=== PATIENT | male | born 1965 | race Caucasian/White ===

== ENCOUNTER → 2017-02-27 | Outpatient (CLI) | payer BC ==
--- NOTE | 2017-02-28 08:33 | XR ---
EXAMINATION TYPE: XR chest 2V DATE OF EXAM: 02/27/2017 COMPARISON: 07/09/2008 TECHNIQUE: PA and lateral views submitted. HISTORY: Cough and congestion FINDINGS: The lungs are clear and there is no pneumothorax, pleural effusion, or focal pneumonia. Tiny calcif ied granuloma right upper lobe. Vague nodularity in the lateral view likely within the medial aspect of the right lower lobe. IMPRESSION: 1. No acute process. There is vague nodularity in the right lower lobe noted on the lateral view. Rec ommend CT scan of the chest.
== END | disposition home or self-care (01) ==
LOC: RADXRMAIN 16:34
PROVIDERS: ATTEND Physician Assistant
DX: J98.4 Other disorders of lung (principal); J20.9 Acute bronchitis, unspecified
CPT/HCPCS: 71046

== ENCOUNTER → 2017-03-24 | Outpatient (CLI) | payer BC ==
--- NOTE | 2017-03-24 09:43 | XR ---
EXAMINATION TYPE: XR chest 2V DATE OF EXAM: 03/24/2017 COMPARISON: 02/27/2017 HISTORY: Persistent wheezing TECHNIQUE: Frontal and lateral views of the chest are obtained. FINDINGS: There is an approximately 1.1 cm pulmonary nodule at the right cardiophrenic angle within the right lung base which requires further evaluation with CT. Remainder the lungs are clear without evidence of focal consolidation, pleural effusion or pneumothorax. Osseous structures are intact. Car rosemary mediastinal silhouette is within normal limits. IMPRESSION: 1.1 cm pulmonary nodule within the right lung base at the cardiophrenic angle which requ ires further evaluation with CT. Otherwise no acute cardiopulmonary process.
== END | disposition home or self-care (01) ==
LOC: RADXRMAIN 08:33
PROVIDERS: ATTEND Family Medicine
DX: R91.1 Solitary pulmonary nodule (principal)
CPT/HCPCS: 71046

== ENCOUNTER → 2018-01-19 | Outpatient (CLI) | payer BC ==
--- NOTE | 2018-01-19 15:27 | CT ---
EXAMINATION TYPE: CT chest w con DATE OF EXAM: 01/19/2018 COMPARISON: Chest x-ray March 24, 2017 HISTORY: Solitary lung nodule. CT DLP: 562.8 mGycm. Automated Exposure Control for Dose Reduction was Utilized. TECHNIQUE: CT scan of the thorax is performed following with IV Contrast, patient injected with 100m l mL of Isovue 300. FINDINGS: LUNGS: There is stable calcified 1.2 cm nodule or granuloma in the right lower lobe posterior mediall y axial image 45. No suspicious greater than 4 mm noncalcified nodule or mass is present. No pleural effusion or pneumothorax is seen bilaterally. Tracheobronchial tree is patent. MEDIASTINUM: There are no greater than 1 cm noncalcified hilar or mediastinal lymph nodes. There are prominent but calcified right hilar lymph nodes No cardiomegaly or pericardial effusion is seen. OTHER: Liver is diffusely low dense consistent with fatty infiltration. There is partial visualizatio n of haziness and prominent but subcentimeter lymph nodes in the mid abdominal mesentery. IMPRESSION: 1. Evidence of old granulomatous disease. No suspicious noncalcified nodules. 2. Partial visualization of romy mesentery, differential includes mesenteric panniculitis, the etiol ogies are not excluded. Clinical correlation advised to determine need for further workup.
== END ==
LOC: RADCTMAIN 14:46
PROVIDERS: ATTEND Family Medicine
DX: D71 Functional disorders of polymorphonuclear neutrophils (principal)
CPT/HCPCS: 71260; Q9967

== ENCOUNTER 2021-11-02 09:03 | Day surgery (SDC) | payer BC ==
[2021-10-29 11:12] VITALS: BMI 34.0
[~2021-11-02 09:03] MED LIST: LACTATED RINGERS 1,000 ML IV SCH; LIDOCAINE 1% (10MG/ML) FOR IV START INTRADERMA PRN
[2021-11-02 09:53] VITALS: RESP 16; TEMP 97.9
[2021-11-02] MEDS ORDERED: PROPOFOL 10 MG/ML 20 ML VIAL IV ONE (10:20)
[2021-11-02] MEDS ORDERED: LIDOCAINE 2% INJ 20 MG/ML (2 ML VIAL) ONE (10:20)
--- NOTE | 2021-11-02 10:38 | P.PCN ---
Date of Procedure: 11/02/21 Procedure(s) Performed: BRIEF HISTORY: Patient is a 56-year-old pleasant white male scheduled for an elective colonoscopy as a part of screening for colon cancer and family history of colon cancer. His dad was diagnosed with colon cancer at age 75. PROCEDURE PERFORMED: Colonoscopy. PREOPERATIVE DIAGNOSIS: Screening for colon cancer and family history of colon cancer. IV sedation per Anesthesia. PROCEDURE: After informed consent was obtained, the patient, was brought into the endoscopy unit. IV sedation was administered by Anesthesia under continuous monitoring. Digital rectal examination was normal. Initially the Olympus CF-160 flexible video colonoscope was then inserted in the rectum, gradually advanced into the cecum without any difficulty. Careful examination was performed as the scope was gradually being withdrawn. Ileocecal valve and the appendiceal orifice were visualized and appeared normal. Prep was excellent. Mucosa of the cecum, ascending colon, transverse colon, descending colon, sigmoid colon, and rectum appeared normal. Retroflexion was performed in the rectum and no lesions were seen. The patient tolerated the procedure well. IMPRESSION: Normal-appearing colon from rectum to cecum with no evidence of colorectal neoplasia . RECOMMENDATIONS: Findings of this examination were discussed with the patient as well as his family. He was advised to have a repeat screening colonoscopy every 5 years because of family history of colon cancer..
[2021-11-02 11:16] VITALS: BP 129/91; PULSE 83
== END 2021-11-02 11:17 | disposition home or self-care (01) ==
LOC: ORWHC2ENDO 09:03
PROVIDERS: ATTEND Internal Medicine Gastroenterology
DX: Z12.11 Encounter for screening for malignant neoplasm of colon (principal); Z80.0 Family history of malignant neoplasm of digestive organs; I10 Essential (primary) hypertension; J45.909 Unspecified asthma, uncomplicated; Z88.0 Allergy status to penicillin; Z79.899 Other long term (current) drug therapy
CPT/HCPCS: 45378; J2704; J2001

== ENCOUNTER → 2023-09-06 | Outpatient (CLI) | payer BC ==
--- NOTE | 2023-09-06 17:16 | XR ---
EXAMINATION TYPE: XR chest 2V DATE OF EXAM: 09/06/2023 4:29 PM CLINICAL INDICATION:Male, 58 years old with history of J45.330 MILD PERSISTENT ASTHMA, UNCOMPLICATED; [facility] COMPARISON: Chest radiographs from 02/27/2017, 01/19/2018 TECHNIQUE: XR chest 2V Frontal view of the chest. FINDINGS: Lungs/Pleura: There is no evidence of pleural effusion, focal consolidation, or pneumothorax. Pulmonary vascularity: Unremarkable. Heart/mediastinum: Cardiomediastinal silhouette is unremarkable. Musculoskeletal: No acute osseous pathology. Other findings: None IMPRESSION: No acute cardiopulmonary disease/process. Similar lower lobe pulmonary nodule as seen on prior radiograph dating back to at least 2018.
== END | disposition home or self-care (01) ==
LOC: RADXRMAIN 16:21
PROVIDERS: ATTEND Family Medicine
DX: J45.30 Mild persistent asthma, uncomplicated (principal); R91.1 Solitary pulmonary nodule
CPT/HCPCS: 71046

== ENCOUNTER → 2023-09-19 | Outpatient (CLI) | payer BC | LOC: CPPFTMAIN 08:22 | PROVIDERS: ATTEND Family Medicine | DX: J45.30 Mild persistent asthma, uncomplicated (principal); Z79.51 Long term (current) use of inhaled steroids; Z88.0 Allergy status to penicillin | CPT/HCPCS: 94060; 94726; 94729 ==